=== PATIENT | male | born 1985 | race Caucasian/White ===

== ENCOUNTER → 2022-01-01 | Outpatient (CLI) | payer BC | LOC: M LABSMTC 09:19 | PROVIDERS: ATTEND Anesthesiology | DX: Z01.812 Encounter for preprocedural laboratory examination (principal); Z11.52 Encounter for screening for COVID-19 ==

== ENCOUNTER 2022-01-06 08:20 | Day surgery (SDC) | payer BC ==
[~2022-01-06] VITALS: Ht 185.4 cm; Wt 83.4 kg
[2022-01-06] MEDS ORDERED: LR 1,000 ML IV SCH ×2 (08:50→12:35)
[2022-01-06] MEDS ORDERED: MIDAZOLAM INJ 2MG/2ML VIAL (J2250 PER 1MG) As Ordered ONE (09:01)
[2022-01-06] MEDS ORDERED: METOCLOPRAMIDE INJ 10MG/2ML VIAL (J2765 PER 1) As Ordered ONE (09:01)
[2022-01-06] MEDS ORDERED: fentaNYL 100 MCG/2 ML INJECTION As Ordered ONE (09:01)
[2022-01-06] MEDS ORDERED: ONDANSETRON 4MG 2ML VIAL As Ordered ONE (09:01)
[2022-01-06] MEDS ORDERED: ROCURONIUM BROMIDE 50 MG/5 ML VIAL As Ordered ONE (09:01)
[2022-01-06] MEDS ORDERED: propofoL 200 MG/20 ML VIAL As Ordered ONE (09:01)
[2022-01-06] MEDS ORDERED: dexameTHASONE 4 MG/ML 1ML VIAL (J1100 PER 1MG) As Ordered ONE (09:01)
[2022-01-06] MEDS ORDERED: SUGAMMADEX SODIUM 500 MG/5 ML VIAL (BRIDION) As Ordered ONE (09:01)
[2022-01-06] MEDS ORDERED: LIDOCAINE 2% INJ 100 MG/5 ML SYRINGE As Ordered ONE (09:01)
[2022-01-06] MEDS ORDERED: KETOROLAC 60MG 2ML VIAL As Ordered ONE (09:01)
[2022-01-06] MEDS ORDERED: BUPIVACAINE HCL 0.25% 30ML VIAL As Ordered ONE (09:43)
[2022-01-06] MEDS ORDERED: ONDANSETRON 4MG 2ML VIAL IV PRN (12:35)
[2022-01-06] MEDS ORDERED: oxyCODONE 5MG TAB PO PRN (12:35)
[2022-01-06] MEDS ORDERED: fentaNYL 100 MCG/2 ML INJECTION IV PRN (12:35)
[2022-01-06] MEDS ORDERED: HYDR-3715 PO (12:36)
[2022-01-06] MEDS ORDERED: IBUPROFEN 600MG TAB PO PRN (13:00)
[2022-01-06] MEDS ORDERED: NORCO, ANEXSIA 5/325MG TABLET (HYDROcodone/ACETAMINOPHEN) PO PRN (13:00)
[2022-01-06] MEDS ORDERED: ACETAMINOPHEN 325 MG/10.15 ML UDC PO PRN (13:00)
[2022-01-06 14:06] VITALS: BP 119/71
== END 2022-01-06 14:44 | disposition home or self-care (01) ==
LOC: M SDC 08:20
PROVIDERS: ATTEND Surgery
DX: K40.90 Unilateral inguinal hernia, without obstruction or gangrene, not specified as recurrent (principal)
CPT/HCPCS: 49650; C1781; J1100; J1885; J2250; J2405; J2765; J3010; S2900

== ENCOUNTER 2024-01-12 18:11 | Emergency (ER) | payer BC ==
[~2024-01-12] VITALS: Ht 185.4 cm; Wt 87.2 kg
[~2024-01-12 18:11] MED LIST: HYDR-3715 PO
[2024-01-12 18:24] VITALS: BP 144/77; TEMP 98.3; O2SAT 98
[2024-01-12] MEDS: ACETAMINOPHEN TAB 650MG DOSE (2X325MG) PO ONE (21:00)
[2024-01-12] MEDS ORDERED: ACETAMINOPHEN 500 MG TAB PO ONE (22:45)
[2024-01-12] MEDS: CYCLOBENZAPRINE 10MG TABLET PO ONE (23:23)
[2024-01-12] MEDS ORDERED: CYCL5TAB PO (23:40)
== END 2024-01-13 | disposition home or self-care (01) ==
LOC: M ED 18:11 → EDBD 18:11 → M ED 01-13
DX: S93.401A Sprain of unspecified ligament of right ankle, initial encounter (principal); Y92.410 Unspecified street and highway as the place of occurrence of the external cause; Y93.9 Activity, unspecified; Y99.9 Unspecified external cause status; V48.5XXA Car driver injured in noncollision transport accident in traffic accident, initial encounter; Z79.899 Other long term (current) drug therapy